=== PATIENT | male | born 1980 | race American Indian/Alaskan Native ===

== ENCOUNTER 2016-10-10 01:59 | Emergency (ER) | payer MEDICARE ==
[2016-10-10 05:44] VITALS: BP 115/87
[2016-10-10] MEDS ORDERED: NORCO 5/325 PO ONE (06:18)
--- NOTE | 2016-10-10 06:45 | XRay Report ---
FINAL REPORT PROCEDURE: XR HAND 3 RT TECHNIQUE: RIGHT hand radiographs, AP, lateral, and oblique views. CPT 89071-YW HISTORY: pain, injury COMPARISON: No prior studies are available for comparison. FINDINGS: Fracture (s) and/or Dislocation(s): None . Alignment: Normal . Joint space(s): Normal . Soft tissues: Normal . Bone mineralization: Normal . Foreign bodies: None . IMPRESSION: Normal Examination .
--- NOTE | 2016-10-10 06:46 | XRay Report ---
FINAL REPORT PROCEDURE: XR ELBOW 3 RT TECHNIQUE: Right elbow radiographs, including AP, lateral, and oblique views. CPT 33599 HISTORY: pain, injury COMPARISON: No prior studies are available for comparison. FINDINGS: Fracture (s) and/or Dislocation(s): None . Alignment: Normal . Joint space(s): Normal . Soft tissues: Normal . Bone mineralization: Normal . Foreign bodies: None . IMPRESSION: Normal Examination
--- NOTE | 2016-10-10 07:13 | Emergency Department Report ---
Upper Extremity - HPI Chief Complaint: Extremity Problem,Nontraumatic Stated Complaint: PAIN RT ARM Time Seen by Provider: 10/10/16 06:12 Upper Extremity: Right Arm, Right Elbow, Right Forearm, Right Hand Mechanism: Fall, Other (blood draw) Symptoms: Yes Pain with Movement, Yes Limited Range of Movement, Yes Numbness, Yes Weakness, Yes Swelling, No Deformity, No Bruising/Ecchymosis, No Laceration or Abrasion Other History: Patient comes in the ER today with complaints of right arm pain. Patient states that earlier today he tried to donate blood and he states that the lady drawing his blood was poking around and him a lot and was causing a lot of pain and he made her stop. Since then he has had very bad pain in his right elbow and distal upper arm. States that he also had some numbness and tingling going into his forearm and hand. Patient also states that approximately a week ago he fell on his right arm and was having pain from that prior to drawing blood. Patient states he never got his arm checked out after the fall. Patient states pain is worse with trying to move his arm in any position. Patient has not taken anything [id number] for his discomfort because he states that he knows his body and the [id number] medicine does not work. ED Review of Systems ROS: Stated complaint: PAIN RT ARM Other details as noted in HPI Constitutional: denies: chills, fever Eyes: denies: eye pain, eye discharge, vision change ENT: denies: ear pain, throat pain Respiratory: denies: cough, shortness of breath, wheezing Cardiovascular: denies: chest pain, palpitations Endocrine: no symptoms reported Gastrointestinal: denies: abdominal pain, nausea, diarrhea Genitourinary: denies: urgency, dysuria Musculoskeletal: joint swelling, arthralgia, myalgia. denies: back pain Skin: denies: rash, lesions Neurological: weakness (right arm weakness secondary to pain), other (tingling in right arm). denies: headache, paresthesias Psychiatric: denies: anxiety, depression Hematological/Lymphatic: denies: easy bleeding, easy bruising ED Past Medical Hx - Past Medical History Previous Medical History?: Yes Hx Hypertension: Yes Hx Asthma: Yes Additional medical history: scoliosis; h/o tachycardia, syncope - Surgical History Past Surgical History?: Yes Additional Surgical History: Left testicle removed - Social History Smoking Status: Current Every Day Smoker Substance Use Type: None - Medications Home Medications: Home Medications Medication Instructions Recorded Confirmed Last Taken Type Acetaminophen/Codeine [Tylenol 1 tab PO Q6H PRN #20 tab 10/10/16 Unknown Rx /Codeine # 3 tab] Cyclobenzaprine HCl [Flexeril 5 MG 5 mg PO TID #15 tab 10/10/16 Unknown Rx TAB] Naproxen [Naprosyn TAB] 500 mg PO BID #20 tablet 10/10/16 Unknown Rx Upper Extremity Exam - Exam General: Vital signs noted. No distress. Alert and acting appropriately. Head and Torso: No HEENT Abnormality, No Neck Tenderness, No Chest/Lungs Abnormality, No Abdominal Tenderness, No Back Tenderness Shoulder Exam: Yes Normal Range of Motion in Shoulder, No Shoulder Tenderness, No Clavicle Tenderness, No Shoulder Deformity, No AC Joint Tenderness Arm Exam: No Arm/Humerus Tenderness, No Arm Deformity Elbow: Yes Elbow Tenderness (diffuse elbow tenderness with greatest amount of tenderness noted anteriorly. Well-healing puncture site consistent with history of venipuncture noted to right anterior elbow), No Normal Range of Motion in Elbow (Limited range of motion secondary to pain), No Elbow Deformity Forearm: Yes Forearm Tenderness, Yes Pain with Pronation (elbow pain with range of motion), Yes Pain with Supination (elbow pain with range of motion), No Forearm Deformity Wrist: Yes Normal ROM in Wrist, No Wrist Tenderness, No Wrist Deformity, No Snuffbox Tenderness, No Pain with Axial Thumb Compression Hand: Yes Hand Tenderness (tenderness noted diffusely to right hand. No focal point of tenderness), Yes Normal ROM in Digit(s), No Hand Deformity, No Digit Tenderness, No Digit(s) Deformity, No Tendon Dysfunction CMS Exam: Yes Normal Distal Pulses, Yes Normal Capillary Refill, Yes Normal Distal Sensation, No Broken Skin ED Course Vital Signs 10/10/16 10/10/16 02:13 05:42 Temperature 98.9 F 97.6 F Pulse Rate 91 H 80 Respiratory 18 18 Rate Blood Pressure 113/80 115/87 O2 Sat by Pulse 98 100 Oximetry ED Medical Decision Making - Radiology Data Radiology results: report reviewed X-ray right hand no acute process, no dislocation or fracture. X-ray right elbow no acute process, no dislocation or fracture. - Medical Decision Making Patient is nontoxic and hemodynamically stable. Patient does have mild amount of swelling noted in area of right before meals consistent with venipuncture and suspected thrombophlebitis. I've instructed patient to apply warm compresses to the area of the next few days to help with the inflammation. X- ray results reviewed and discussed with patient room. There is no bone pathology noted. Patient was placed in sling here in the ER an hour for patient to orthopedic for further evaluation if symptoms fail to resolve or worsen. Patient will be started on some medications appropriately to help with his symptoms and he is to limit any strenuous activity with arm for the next week. Patient is in agreement with treatment plan patient stable for discharge. Critical care attestation.: If time is entered above; I have spent that time in minutes in the direct care of this critically ill patient, excluding procedure time. ED Disposition Clinical Impression: Superficial thrombophlebitis of arm, Right arm pain, Contusion of right arm Disposition: DC- TO HOME OR SELFCARE Is pt being admited?: No Does the pt Need Aspirin: No Condition: Good Instructions: Superficial Thrombophlebitis (ED), Contusion in Adults (ED) Prescriptions: Acetaminophen/Codeine [Tylenol /Codeine # 3 tab] 1 tab PO Q6H PRN #20 tab PRN Reason: Pain Cyclobenzaprine HCl [Flexeril 5 MG TAB] 5 mg PO TID #15 tab Naproxen [Naprosyn TAB] 500 mg PO BID #20 tablet Referrals: SILVIA NEUMANN [Other] - 3-5 Days MAGGY BARKER MD [Staff Physician] - 3-5 Days Time of Disposition: 07:13
== END 2016-10-10 07:25 | disposition home or self-care (01) ==
LOC: ED 01:59
DX: S40.021A Contusion of right upper arm, initial encounter (principal); I80.9 Phlebitis and thrombophlebitis of unspecified site; M79.601 Pain in right arm; I10 Essential (primary) hypertension; J45.909 Unspecified asthma, uncomplicated; F17.200 Nicotine dependence, unspecified, uncomplicated; W18.30XA Fall on same level, unspecified, initial encounter; Y93.9 Activity, unspecified; Y92.9 Unspecified place or not applicable; Y99.9 Unspecified external cause status
CPT/HCPCS: 99283